=== PATIENT | female | born 1965 | race Caucasian/White ===

== ENCOUNTER 2021-05-31 07:24 | Day surgery (SDCO) | payer OTHER ==
[~2021-05-31] VITALS: Ht 157.5 cm; Wt 90.7 kg
[~2021-05-31 07:24] MED LIST: ARMOUR THYROID90 MG PO; BUPROPION XL300 MG PO; COZAAR100 MG PO; ESOMEPRAZOLE MA40 MG PO; FOLIC ACID1 MG PO; KELP150 MCG PO; LIPITOR 10MG TA10 MG PO; MACROBID100 MG PO; METFORMIN HCL500 MG PO; PROBIOTIC1 EAC1 PO; PROGESTERONE100 MG PO; PROZAC20 MG PO; TOPROL XL 50 MG50 MG PO; VITAMIN D3125 MC1 PO; [UNRECOGNIZED DRUG - OTHER] PO
[2021-05-31 08:10] LABS: HCG (URINE) SCREEN NEGATIVE (NEGATIVE)
[2021-05-31 08:29] LABS: HCT 39.7 % (37.0-47.0); HGB 13.1 g/dl (12.5-16.0); MPV 10.6 fL (6.0-9.5); RBC 4.51 M/uL (4.20-5.40); RDW 12.7 % (11.5-14.0); WBC 7.1 K/uL (4.0-10.5)
[2021-05-31 08:49] LABS: ALBUMIN 3.7 g/dL (3.4-5.0); BILIRUBIN - TOTAL 0.4 mg/dL (0.2-1.0); CREATININE 0.91 mg/dL (0.51-0.95); GLOBULIN (CALCULATION) 3.5 g/dL; POTASSIUM 4.4 mmol/L (3.5-5.1); TOTAL PROTEIN 7.2 g/dL (6.4-8.2)
[2021-05-31] MEDS ORDERED: KETOROLAC TROME10 MG PO (14:46)
== END 2021-05-31 15:05 | disposition home or self-care (01) ==
LOC: FSDC 07:24 → FMS 08:30 → FSDC 15:05
PROVIDERS: ADMIT Specialist
DX: N87.1 Moderate cervical dysplasia (principal); N80.0 Endometriosis of uterus; N72 Inflammatory disease of cervix uteri; N73.6 Female pelvic peritoneal adhesions (postinfective); N83.292 Other ovarian cyst, left side; N83.291 Other ovarian cyst, right side; I10 Essential (primary) hypertension; E78.5 Hyperlipidemia, unspecified; E03.9 Hypothyroidism, unspecified; F32.9 Major depressive disorder, single episode, unspecified; Z79.899 Other long term (current) drug therapy
CPT/HCPCS: 36415; 80053; 84703; 86850; 86900; 86901; 93005; G0378; J0690; J1100; J1170; J1885; J2250; J2370; J2405; J2704; J2710; J3010; J7120; Q9968